=== PATIENT | male | born 1995 | race Asian ===

== ENCOUNTER → 2023-02-19 | Outpatient (CLI) | payer OTHER ==
[~2023-02-19] MED LIST: ACET-66 PO; BENZ-227 PO; GUAIFDM PO; IBUP-1554 PO
[2023-02-20 04:06] LABS: MUMPS VIRUS IGG ANTIBODY 14.6 AU/mL (Immune >10.9); RUBELLA AB IGG-REFLAB >33.00 index (Immune >0.99); RUBEOLA (MEASLES) IGG 41.6 AU/mL (Immune >16.4)
== END | disposition home or self-care (01) ==
LOC: LABMN 13:19
PROVIDERS: ATTEND Internal Medicine
DX: Z02.1 Encounter for pre-employment examination (principal)
CPT/HCPCS: 86706; 86735; 86762; 86765; 86787

== ENCOUNTER 2023-02-23 19:16 | Emergency (ER) | payer MEDICAID, OTHER ==
[~2023-02-23] VITALS: Ht 170.2 cm; Wt 73.0 kg
[2023-02-23 20:30] LABS: BASOPHILS % (AUTO) 0.6 % (0.0-2.0); EOSINOPHILS % (AUTO) 1.3 % (1.0-6.0); HEMATOCRIT 45.1 % (41-53); HEMOGLOBIN 14.9 g/dL (13.5-17.5); LYMPHOCYTES # (AUTO) 3.1 K/uL (1.0-4.8); LYMPHOCYTES % (AUTO) 42.5 % (22.0-44.0); MEAN CORPUSCULAR HEMOGLOBIN 30.8 pg (26.0-34.0); MEAN CORPUSCULAR HGB CONC 33.1 G/dL (31.0-37.0); MEAN CORPUSCULAR VOLUME 93 fL (80-100); MONOCYTES # (AUTO) 0.5 K/uL (0.1-1.0); MONOCYTES % (AUTO) 6.9 % (2.0-9.0); NEUTROPHILS # (AUTO) 3.5 K/uL (1.8-7.7); NEUTROPHILS % (AUTO) 48.7 % (40.0-70.0); PLATELET COUNT (AUTO) 279 K/uL (150-450); RED BLOOD CELL COUNT(AUTO) 4.85 MIL/uL (4.50-5.90); RED CELL DISTRIBUTION WIDTH 12.8 % (11.5-14.5); WHITE BLOOD COUNT (AUTO) 7.2 K/uL (4.5-11.0)
[2023-02-23 20:39] LABS: ANION GAP 12 mmol/L (8-16); CALCIUM, TOTAL 9.3 mg/dL (8.8-10.5); CARBON DIOXIDE 27 mmol/L (22-29); CHLORIDE 101 mmol/L (98-107); CREATININE 1.07 mg/dL (0.60-1.30); GLOMERULAR FILTR. RATE CALC > 60 mL/min (>60); GLUCOSE,RANDOM 139 mg/dL (70-110); POTASSIUM 3.6 mmol/L (3.5-5.1); SODIUM SERUM 140 mmol/L (136-145); UREA NITROGEN, BLOOD 16 mg/dL (7-18)
[2023-02-23 20:44] LABS: ALANINE AMINOTRANSFERASE 168 U/L (12-78); ALBUMIN 4.1 g/dL (3.4-5.0); ALKALINE PHOSPHATASE 121 U/L (46-116); ASPARTATE AMINOTRANSFERASE 72 U/L (15-37); BILIRUBIN,TOTAL 0.2 mg/dL (0.1-1.0)
[2023-02-23] MEDS ORDERED: ACETAMINOPHEN 500 MG TABLET PO ONE (20:45)
[2023-02-23] MEDS ORDERED: BENZONATATE 100 MG CAPSULE PO ONE (20:45)
[2023-02-23] MEDS ORDERED: GuaiFENesin/D-METHORPHAN [SUGAR-FREE] 200-20MG/10 ML SYRUP UDCUP PO ONE (20:45)
[2023-02-23] MEDS ORDERED: IBUP-1554 PO (20:53)
[2023-02-23] MEDS ORDERED: ACET-66 PO (20:53)
[2023-02-23] MEDS ORDERED: BENZ-227 PO (20:53)
[2023-02-23] MEDS ORDERED: GUAIFDM PO (20:53)
[2023-02-23 21:23] VITALS: BP 129/88; PULSE 99; RESP 17; TEMP 97.3
== END 2023-02-23 21:55 | disposition home or self-care (01) ==
LOC: EMS 19:17
DX: J20.9 Acute bronchitis, unspecified (principal)
CPT/HCPCS: 71045; 80053; 85025; 99284; 36415-L1; 36415-TC

== ENCOUNTER → 2023-09-13 | Outpatient (CLI) | payer OTHER ==
[2023-09-14 07:18] LABS: BASOPHILS % (AUTO) 0.5 % (0.0-2.0); EOSINOPHILS % (AUTO) 1.2 % (1.0-6.0); LYMPHOCYTES # (AUTO) 3.4 K/uL (1.0-4.8); LYMPHOCYTES % (AUTO) 43.8 % (22.0-44.0); MEAN CORPUSCULAR HEMOGLOBIN 31.8 pg (26.0-34.0); MEAN CORPUSCULAR HGB CONC 33.5 G/dL (31.0-37.0); MEAN CORPUSCULAR VOLUME 95 fL (80-100); MONOCYTES # (AUTO) 0.8 K/uL (0.1-1.0); MONOCYTES % (AUTO) 9.9 % (2.0-9.0); NEUTROPHILS # (AUTO) 3.4 K/uL (1.8-7.7); NEUTROPHILS % (AUTO) 44.6 % (40.0-70.0); PLATELET COUNT (AUTO) 247 K/uL (150-450); RED BLOOD CELL COUNT(AUTO) 4.72 MIL/uL (4.50-5.90); RED CELL DISTRIBUTION WIDTH 13.4 % (11.5-14.5); WHITE BLOOD COUNT (AUTO) 7.7 K/uL (4.5-11.0)
[2023-09-14 07:27] LABS: ERYTHROCYTE SEDIMENTATION RATE 10 MM/HR (0-15)
[2023-09-14 07:40] LABS: HEMOGLOBIN A1C 5.5 % (3.8-5.6)
[2023-09-14 07:42] LABS: ALANINE AMINOTRANSFERASE 46 U/L (12-78); ALKALINE PHOSPHATASE 69 U/L (46-116); ANION GAP 7 mmol/L (8-16); ASPARTATE AMINOTRANSFERASE 23 U/L (15-37); BILIRUBIN,TOTAL 0.8 mg/dL (0.1-1.0); CALCIUM, TOTAL 8.4 mg/dL (8.8-10.5); CARBON DIOXIDE 30 mmol/L (22-29); CHLORIDE 102 mmol/L (98-107); CHOLESTEROL 207 mg/dL (131-200); CREATININE 1.14 mg/dL (0.60-1.30); GLOMERULAR FILTR. RATE CALC > 60 mL/min (>60); GLUCOSE,RANDOM 106 mg/dL (70-110); HDL CHOLESTEROL 70 mg/dL (40-60); LDL CHOL (CALC.) 121 mg/dL (0-130); POTASSIUM 3.9 mmol/L (3.5-5.1); SODIUM SERUM 139 mmol/L (136-145); THYROID STIMULATING HORMONE 2.87 uIU/mL (0.36-3.74); TOTAL PROTEIN, SERUM 7.7 g/dL (6.4-8.2); TRIGLYCERIDES 80 mg/dL (15-150); UREA NITROGEN, BLOOD 16 mg/dL (7-18)
[2023-09-21 15:36] LABS: OVA AND PARASITES EXAM Final report
== END | disposition home or self-care (01) ==
LOC: LABMN 08:46
PROVIDERS: ATTEND Internal Medicine
DX: K62.5 Hemorrhage of anus and rectum (principal); E55.9 Vitamin D deficiency, unspecified; Z79.899 Other long term (current) drug therapy
CPT/HCPCS: 80053; 80061; 82271; 82306; 83036; 84443; 85025; 85651; 87045; 87177; 89055

== ENCOUNTER 2024-03-04 15:21 | Emergency (ER) | payer OTHER ==
[~2024-03-04] VITALS: Ht 172.7 cm; Wt 75.0 kg
[2024-03-04 15:23] VITALS: TEMP 98.4
[2024-03-04] MEDS: GELATIN SPONGE,ABSORBABLE 12-7 MM TP ONE (17:25)
[2024-03-04] MEDS: PERTUSS(ACELL),DIPH,TET/PF 0.5 ML SYRINGE [ADULT] IM. ONE (17:27)
[2024-03-04 18:15] VITALS: BP 122/72; PULSE 90; RESP 18; O2SAT 100
== END 2024-03-04 18:34 | disposition home or self-care (01) ==
LOC: EMS 15:21
DX: S61.012A Laceration without foreign body of left thumb without damage to nail, initial encounter (principal); W26.0XXA Contact with knife, initial encounter; Y93.89 Activity, other specified; Y92.89 Other specified places as the place of occurrence of the external cause; Y99.8 Other external cause status
CPT/HCPCS: 12001; 90471; 90715; 99283

== ENCOUNTER 2024-11-04 12:32 | Emergency (ER) | payer OTHER ==
[~2024-11-04] VITALS: Ht 175.3 cm; Wt 72.7 kg
[2024-11-04 12:35] VITALS: TEMP 98.2
[2024-11-04 13:00] VITALS: BP 129/67; PULSE 96; RESP 18; O2SAT 100
[2024-11-04] MEDS: PredniSONE 20 MG TABLET PO ONE (13:26)
[2024-11-04] MEDS: DiphenhydrAMINE HCL 25 MG CAPSULE PO ONE (13:26)
[2024-11-04] MEDS ORDERED: DIPH25TA51 PO (13:56)
[2024-11-04] MEDS ORDERED: PRED-554 PO (13:56)
== END 2024-11-04 14:43 | disposition home or self-care (01) ==
LOC: EMS 12:40
DX: T78.49XA Other allergy, initial encounter (principal); X58.XXXA Exposure to other specified factors, initial encounter; Y99.8 Other external cause status
CPT/HCPCS: 99283; J7512

== ENCOUNTER 2024-11-17 18:10 | Emergency (ER) | payer OTHER ==
[~2024-11-17] VITALS: Ht 175.3 cm; Wt 72.7 kg
[~2024-11-17 18:10] MED LIST changes: -ACET-66 PO; -BENZ-227 PO; +DIPH25TA51 PO; -GUAIFDM PO; -IBUP-1554 PO; +PRED-554 PO
[2024-11-17 18:14] VITALS: TEMP 98
[2024-11-17 18:20] VITALS: BP 138/83; PULSE 74; RESP 18; O2SAT 99
[2024-11-17] MEDS ORDERED: PRED-554 PO (18:27)
== END 2024-11-17 18:41 | disposition home or self-care (01) ==
LOC: EMS 18:12
DX: T78.40XA Allergy, unspecified, initial encounter (principal); Z79.52 Long term (current) use of systemic steroids; X58.XXXA Exposure to other specified factors, initial encounter
CPT/HCPCS: 99283; J7512

== ENCOUNTER 2024-12-21 23:06 | Emergency (ER) | payer OTHER ==
[~2024-12-21] VITALS: Ht 175.3 cm; Wt 75.0 kg
[2024-12-21 23:14] VITALS: BP 137/75; PULSE 102; RESP 16; TEMP 98.4; O2SAT 99
[2024-12-22] MEDS ORDERED: DIPH25TA51 PO (00:24)
[2024-12-22] MEDS ORDERED: METH4TAB3 PO (00:24)
[2024-12-22] MEDS: DEXAMETHASONE SOD PHOS 4 MG/ML 5 ML VIAL IM ONE (00:33)
== END 2024-12-22 00:45 | disposition home or self-care (01) ==
LOC: EMS 23:21
DX: L50.9 Urticaria, unspecified (principal); Z79.52 Long term (current) use of systemic steroids
CPT/HCPCS: 99283; 96372; J1100

== ENCOUNTER 2025-02-11 14:39 | Emergency (ER) | payer OTHER ==
[~2025-02-11] VITALS: Ht 175.3 cm; Wt 68.2 kg
[~2025-02-11 14:39] MED LIST changes: +METH4TAB3 PO
[2025-02-11 14:42] VITALS: TEMP 98.2
[2025-02-11 15:31] LABS: PLATELET COUNT (AUTO) 308 K/uL (150-450); RED BLOOD CELL COUNT(AUTO) 4.21 MIL/uL (4.50-5.90); RED CELL DISTRIBUTION WIDTH 12.7 % (11.5-14.5); WHITE BLOOD COUNT (AUTO) 8.5 K/uL (4.5-11.0)
[2025-02-11 16:23] LABS: CALCIUM, TOTAL 8.5 mg/dL (8.8-10.5); CREATININE 1.18 mg/dL (0.60-1.30); GLOMERULAR FILTR. RATE CALC > 60 mL/min (>60); GLUCOSE,RANDOM 116 mg/dL (70-110); SODIUM SERUM 136 mmol/L (136-145); UREA NITROGEN, BLOOD 18 mg/dL (7-18)
[2025-02-11 16:44] VITALS: BP 128/69; PULSE 90; RESP 16; O2SAT 99
== END 2025-02-11 17:11 | disposition home or self-care (01) ==
LOC: EMS 14:39
DX: A08.4 Viral intestinal infection, unspecified (principal); R10.84 Generalized abdominal pain; Z79.52 Long term (current) use of systemic steroids
CPT/HCPCS: 80048; 83690; 85025; 99283